=== PATIENT | female | born 1970 | race Caucasian/White ===

== ENCOUNTER 2023-02-14 01:57 | Emergency (ER) | payer OTHER ==
[2023-02-14] MEDS ORDERED: Metoclopramide 10 MG/2 ML SDV IVPUSH ONE (02:10)
[2023-02-14] MEDS ORDERED: HYDROmorphone 1 MG/ML Syringe IVPUSH ONE (02:10)
[2023-02-14] MEDS ORDERED: LORazepam 2 MG/ML SDV IVPUSH ONE ×2 (02:10→03:17)
[2023-02-14] MEDS ORDERED: Dextrose 5%-0.9% NaCl 1,000 ML IV SCH ×3 (02:15→08:00)
[2023-02-14 02:16] VITALS: BP 103/80; PULSE 76
[2023-02-14 02:20] LABS: BASOPHILS ABSOLUTE AUTO 0.2 K/mm3 (0.0-0.2); BASOPHILS PERCENT AUTO 0.7 % (0.0-1.0); EOSINOPHILS ABSOLUTE AUTO 0.2 K/mm3 (0.0-0.4); EOSINOPHILS PERCENT AUTO 0.9 % (0.0-6.0); HEMATOCRIT 47.1 % (37.0-47.0); HEMOGLOBIN 16.1 gm/dl (12.0-16.0); LYMPHOCYTES ABSOLUTE AUTO 7.7 K/mm3 (1.0-4.8); LYMPHOCYTES PERCENT AUTO 37.6 % (24.0-44.0); MEAN CORPUSCULAR HEMOGLOBIN 30.6 pg (28.0-32.0); MEAN CORPUSCULAR HGB CONC 34.2 g/dl (32.0-36.0); MEAN CORPUSCULAR VOLUME 89.4 fl (83.0-99.0); MEAN PLATELET VOLUME 10.1 fl (9.4-12.3); MONOCYTES ABSOLUTE AUTO 0.7 K/mm3 (0.0-0.8); MONOCYTES PERCENT AUTO 3.4 % (0.0-8.0); NEUTROPHILS ABSOLUTE AUTO 11.3 K/mm3 (1.8-7.7); NEUTROPHILS PERCENT AUTO 55.4 % (41.0-71.0); PLATELET COUNT,PLT 297 K/mm3 (150-400); RED BLOOD CELL COUNT 5.27 M/mm3 (4.10-5.30); WHITE BLOOD CELL COUNT,WBC 20.38 K/mm3 (3.9-11.3)
[2023-02-14 02:41] LABS: A/G RATIO 1.1 (1-2); ALANINE AMINOTRANSFERASE,ALT 35 U/L (14-59); ALBUMIN 4.2 g/dl (3.4-5.0); ALKALINE PHOSPHATASE 84 U/L (46-116); ASPARTATE AMNIOTRANSFERASE,AST 21 U/L (15-37); BILIRUBIN TOTAL 0.5 mg/dL (0.2-1.0); BLOOD UREA NITROGEN,BUN 18 mg/dL (7-18); BUN/CREATININE RATIO 13.8 (14-18); C-REACTIVE PROTEIN <0.2 mg/dL (<1.0); CARBON DIOXIDE,CO2 21 mEq/L (21-32); CHLORIDE,CL 106 mEq/L (98-107); CREATININE 1.3 mg/dL (0.55-1.02); EST CRCL DRUG DOSING (CG) 48.47 mL/min; ESTIMATED GFR 50 mL/min (>60); ETHANOL BLOOD MEDICAL 0.15 gm% (0.00); GLUCOSE RANDOM 229 mg/dL (70-99); LIPASE 46 U/L (16-77); PROTEIN TOTAL,TP 7.9 g/dl (6.4-8.2); SODIUM,NA 142 mEq/L (136-145)
[2023-02-14] MEDS ORDERED: HYDROmorphone 0.5 MG/0.5 ML Syringe IVPUSH ONE (03:17)
[2023-02-14] MEDS ORDERED: Iopamidol 612 MG/ML 30 ML SDV IVPUSH ONE (03:57)
[2023-02-14] MEDS ORDERED: Sodium Chloride 0.9% 10 ML Syringe FLUSH ONE (03:57)
[2023-02-14 04:04] LABS: SLIDE REVIEW ABNORMAL SMEAR
[2023-02-14] MEDS: Potassium Chloride 10 MEQ in Premix Bag 1 BAG IV SCH ×3 (04:34→07:17)
[2023-02-14 04:57] LABS: CORONAVIRUS COVID-19 NAA NEGATIVE (NEGATIVE); INFLUENZA A NAA NEGATIVE (NEGATIVE); RESPIRATORY SYNCYTIAL VIR NAA NEGATIVE (NEGATIVE)
[2023-02-14] MEDS ORDERED: Ertapenem 1 GM in Sodium Chloride 0.9% 50 ML IV ONE (05:37)
[2023-02-14] MEDS ORDERED: Potassium Chloride 100 ML ONE (05:51)
[2023-02-14] MEDS: HYDROmorphone 0.5 MG/0.5 ML Syringe IVPUSH PRN ×2 (06:05→07:39)
== END 2023-02-14 08:05 ==
LOC: JD.ED 01:57
DX: J98.2 Interstitial emphysema (principal); J90 Pleural effusion, not elsewhere classified; J93.9 Pneumothorax, unspecified; K22.3 Perforation of esophagus; E05.90 Thyrotoxicosis, unspecified without thyrotoxic crisis or storm; Z88.6 Allergy status to analgesic agent; Z88.0 Allergy status to penicillin; Z88.5 Allergy status to narcotic agent; Z79.899 Other long term (current) drug therapy
CPT/HCPCS: 0241U; 36415; 71260; 74176; 80053; 80307; 83690; 83735; 84703; 85025; 86140; 93005; 96361; 96365; 96366; 96367; 96375; 96376; 99285; J1170; J1335; J2060; J2765; J3480; J3490; J7042; Q9967

== ENCOUNTER 2023-03-22 17:00 | Emergency (ER) | payer OTHER ==
[2023-03-22 19:34] LABS: BASOPHILS ABSOLUTE AUTO 0.1 K/mm3 (0.0-0.2); BASOPHILS PERCENT AUTO 0.7 % (0.0-1.0); EOSINOPHILS ABSOLUTE AUTO 0.2 K/mm3 (0.0-0.4); EOSINOPHILS PERCENT AUTO 1.7 % (0.0-6.0); HEMATOCRIT 29.2 % (37.0-47.0); HEMOGLOBIN 9.1 gm/dl (12.0-16.0); IMMATURE GRAN ABSOLUTE AUTO 0.29 K/mm3 (0.00-0.05); IMMATURE GRAN PERCENT AUTO 2.8 % (0.0-0.4); LYMPHOCYTES ABSOLUTE AUTO 2.1 K/mm3 (1.0-4.8); LYMPHOCYTES PERCENT AUTO 20.2 % (24.0-44.0); MEAN CORPUSCULAR HGB CONC 31.2 g/dl (32.0-36.0); MEAN CORPUSCULAR VOLUME 89.8 fl (83.0-99.0); MEAN PLATELET VOLUME 9.5 fl (9.4-12.3); MONOCYTES ABSOLUTE AUTO 0.8 K/mm3 (0.0-0.8); MONOCYTES PERCENT AUTO 7.7 % (0.0-8.0); NEUTROPHILS ABSOLUTE AUTO 6.9 K/mm3 (1.8-7.7); NEUTROPHILS PERCENT AUTO 66.9 % (41.0-71.0); PLATELET COUNT,PLT 391 K/mm3 (150-400); RED BLOOD CELL COUNT 3.25 M/mm3 (4.10-5.30); WHITE BLOOD CELL COUNT,WBC 10.38 K/mm3 (3.9-11.3)
[2023-03-22] MEDS ORDERED: cefTRIAXone 2 GM in Sodium Chloride 0.9% 100 ML IV ONE (19:36)
[2023-03-22 19:58] LABS: A/G RATIO 0.6 (1-2); ALBUMIN 2.9 g/dl (3.4-5.0); BILIRUBIN TOTAL 0.4 mg/dL (0.2-1.0); BUN/CREATININE RATIO 3.6 (14-18); C-REACTIVE PROTEIN 3.4 mg/dL (<1.0); CALCIUM 9.3 mg/dL (8.5-10.1); CREATININE 1.4 mg/dL (0.55-1.02); PROTEIN TOTAL,TP 7.5 g/dl (6.4-8.2)
[2023-03-22] MEDS ORDERED: Sodium Chloride 0.9% 10 ML Syringe FLUSH ONE (20:13)
[2023-03-22] MEDS ORDERED: Iopamidol 755 Mg/ML 100 ML Bottle IVPUSH ONE (20:13)
[2023-03-22] MEDS ORDERED: Gabapentin 100 MG Cap PO ONE (20:25)
[2023-03-22 21:03] VITALS: BP 124/72; PULSE 93
== END 2023-03-22 21:45 | disposition home or self-care (01) ==
LOC: JD.ED 17:00
DX: R07.89 Other chest pain (principal); D62 Acute posthemorrhagic anemia; Z79.899 Other long term (current) drug therapy; Z88.8 Allergy status to other drugs, medicaments and biological substances; Z88.0 Allergy status to penicillin; Z88.5 Allergy status to narcotic agent; Z91.011 Allergy to milk products; Z88.6 Allergy status to analgesic agent
CPT/HCPCS: 36415; 71046; 71275; 80053; 84484; 85025; 85379; 85652; 86140; 96365; 99285; A9270; J0696; J3490; Q9967

== ENCOUNTER 2023-03-28 23:23 | Emergency (ER) | payer OTHER ==
[2023-03-28 23:59] VITALS: BP 139/85; PULSE 110
[2023-03-29 00:46] LABS: BASOPHILS ABSOLUTE AUTO 0.1 K/mm3 (0.0-0.2); BASOPHILS PERCENT AUTO 1.3 % (0.0-1.0); EOSINOPHILS ABSOLUTE AUTO 0.1 K/mm3 (0.0-0.4); HEMOGLOBIN 9.4 gm/dl (12.0-16.0); IMMATURE GRAN ABSOLUTE AUTO 0.02 K/mm3 (0.00-0.05); IMMATURE GRAN PERCENT AUTO 0.4 % (0.0-0.4); LYMPHOCYTES ABSOLUTE AUTO 1.4 K/mm3 (1.0-4.8); LYMPHOCYTES PERCENT AUTO 31.2 % (24.0-44.0); MEAN CORPUSCULAR HEMOGLOBIN 28.4 pg (28.0-32.0); MEAN CORPUSCULAR HGB CONC 31.3 g/dl (32.0-36.0); MEAN CORPUSCULAR VOLUME 90.6 fl (83.0-99.0); MEAN PLATELET VOLUME 9.2 fl (9.4-12.3); MONOCYTES ABSOLUTE AUTO 0.4 K/mm3 (0.0-0.8); MONOCYTES PERCENT AUTO 8.6 % (0.0-8.0); NEUTROPHILS ABSOLUTE AUTO 2.6 K/mm3 (1.8-7.7); NEUTROPHILS PERCENT AUTO 56.5 % (41.0-71.0); PLATELET COUNT,PLT 253 K/mm3 (150-400); RED BLOOD CELL COUNT 3.31 M/mm3 (4.10-5.30); WHITE BLOOD CELL COUNT,WBC 4.55 K/mm3 (3.9-11.3)
[2023-03-29] MEDS: Ondansetron 4 MG/2 ML SDV IVPUSH ONE (00:50)
[2023-03-29] MEDS: Dextrose 5%-Lactated Ringers 1,000 ML IV SCH (00:50)
[2023-03-29] MEDS: Sodium Chloride 0.9% 10 ML Syringe FLUSH ONE (00:53)
[2023-03-29 01:04] LABS: INR 1.28; PROTHROMBIN TIME 13.4 SECONDS (9.7-12.0)
[2023-03-29 01:05] LABS: PTT,PARTIAL THROMBOPLSTIN TIME 28.8 SECONDS (21.7-31.4)
[2023-03-29 01:08] LABS: A/G RATIO 0.7 (1-2); ALBUMIN 3.2 g/dl (3.4-5.0); ANION GAP 16.2 (5-15); BILIRUBIN TOTAL 0.4 mg/dL (0.2-1.0); BUN/CREATININE RATIO 5.8 (14-18); CALCIUM 9.1 mg/dL (8.5-10.1); CREATININE 1.2 mg/dL (0.55-1.02); EST CRCL DRUG DOSING (CG) 52.5 mL/min; MAGNESIUM 1.6 mg/dL (1.8-2.4); POTASSIUM,K 4.2 mEq/L (3.5-5.1); PROTEIN TOTAL,TP 7.6 g/dl (6.4-8.2)
[2023-03-29] MEDS: Iopamidol 612 MG/ML 100 ML Bottle IVPUSH ONE (01:23)
[2023-03-29] MEDS: HYDROmorphone 0.5 MG/0.5 ML Syringe IVPUSH ONE (03:05)
[2023-03-29] MEDS: Promethazine 12.5 MG in Sodium Chloride 0.9% 50 ML IV ONE (03:07)
[2023-03-29] MEDS: Metoclopramide 10 MG/2 ML SDV IVPUSH ONE (03:36)
== END 2023-03-29 04:37 | disposition home or self-care (01) ==
LOC: JD.ED 23:23
DX: K92.0 Hematemesis (principal); I85.01 Esophageal varices with bleeding; J90 Pleural effusion, not elsewhere classified; E03.9 Hypothyroidism, unspecified; Z88.0 Allergy status to penicillin; Z91.040 Latex allergy status; Z91.018 Allergy to other foods; Z88.8 Allergy status to other drugs, medicaments and biological substances; Z79.899 Other long term (current) drug therapy
CPT/HCPCS: 36415; 74177; 74177-26; 80053; 83605; 83735; 85025; 85610; 85730; 86140; 96361; 96365; 96375; 99284; 99284-25; J1170; J2405; J2550; J3490; J7121; Q9967

== ENCOUNTER 2023-10-21 21:45 | Emergency (ER) | payer OTHER ==
[2023-10-21 23:41] VITALS: BP 129/71; PULSE 59
== END 2023-10-21 23:40 | disposition home or self-care (01) ==
LOC: JD.ED 21:45
DX: M79.89 Other specified soft tissue disorders (principal); Z79.899 Other long term (current) drug therapy; Z88.6 Allergy status to analgesic agent; Z88.0 Allergy status to penicillin; Z91.011 Allergy to milk products; Z88.8 Allergy status to other drugs, medicaments and biological substances; Z91.048 Other nonmedicinal substance allergy status
CPT/HCPCS: 93971-26-RT; 93971-RT; 99283

== ENCOUNTER 2024-03-12 17:25 | Emergency (ER) | payer OTHER ==
[2024-03-12 19:06] VITALS: BP 115/52; PULSE 75
== END 2024-03-12 19:00 | disposition home or self-care (01) ==
LOC: JD.ED 17:25
DX: I97.610 Postprocedural hemorrhage of a circulatory system organ or structure following a cardiac catheterization (principal); Z88.0 Allergy status to penicillin; Z88.6 Allergy status to analgesic agent; Z88.8 Allergy status to other drugs, medicaments and biological substances; Z91.011 Allergy to milk products; Z79.899 Other long term (current) drug therapy
CPT/HCPCS: 99283